=== PATIENT | female | born 1955 | race American Indian/Alaskan Native ===

== ENCOUNTER 2019-06-09 10:05 | Day surgery (SDC) | payer MEDICAID ==
[~2019-06-09 10:05] MED LIST: NACL 0.9% 1000 ML 1,000 ML IV SCH; XYLOCAINE MPF 2% ONE
--- NOTE | 2019-06-09 11:39 | Anesthesia Day of Surgery ---
Anesthesia Day of Surgery - Day of Surgery Patient Examined: Yes Patient H&P Reviewed: Yes Patient is NPO: Yes
--- NOTE | 2019-06-09 11:42 | Anesthesia Consultation ---
Anesthesia Consult and Med Hx Date of service: 06/09/19 - Pre-Operative Health Status ASA Pre-Surgery Classification: ASA2 Proposed Anesthetic Plan: MAC - Pulmonary Hx Asthma: Yes COPD: Yes - Cardiovascular System Hx Hypertension: Yes (States she can climb two flights of stairs) - Central Nervous System Hx Back Pain: Yes (Fusion) - Gastrointestinal Hx Gastroesophageal Reflux Disease: Yes (With spicy foods) - Endocrine Hx Renal Disease: Yes
[2019-06-09] MEDS ORDERED: DIPRIVAN 10 MG/ML IV ONE ×2 (11:57)
[2019-06-09] MEDS ORDERED: WATER FOR IRRIG STERILE ONE (12:13)
[2019-06-09] MEDS ORDERED: WATER FOR IRRIG STERILE IR ONE (12:13)
--- NOTE | 2019-06-09 12:48 | Operative Report ---
Operative Report Operative Report: Procedure: Colonoscopy with multiple hot biopsy polypectomies and multiple polyp ablations.. Attending physician: Morgan Rollins MD Vpk Teacher: Morgan Rollins MD Indication: Patient is a 63-year-old female who presents for colonoscopy because of positive cologuard test. A colonoscopy is now done to evaluate patient so that treatment may be directed based on the findings. Consent: Informed consent was obtained after advising the patient and family regarding nature of this procedure, its indications, potential benefits as well as possible complications including but not limited to bleeding perforation and adverse reaction to medication, infection as well as other cardiopulmonary com plications. An informed written and verbal consent was then obtained after due opportunity was provided for questions and answers. Monitoring: Patient was monitored continuously with pulse oximetry and electrocardiographic recordings as well as blood pressure recordings. Vital signs remained stable throughout this procedure with no untoward events. Preoperative assessment: Patient was assessed immediately prior to this procedure for capacity to tolerate monitored anesthesia care and moderate sedation as well as general anesthesia. Patient's ASA classification is 2, Mallampati class is 2, Hyomental distance is 3. Instrument: Olympus video colonoscope Medications: Propofol given intravenously in divided doses. For details please refer to anesthesia records. Description of procedure: Patient was placed in the left lateral decubitus position after achieving sedation, a digital rectal examination was performed following which the colonoscope was introduced into the anal verge and advanced to the cecum which was identified by the ileocecal valve, the appendiceal orifice, as well as by the cecal strap and direct transillumination. The colonoscope was subsequently withdrawn with careful inspection of all mucosal surfaces. Patient tolerated this procedure well and was subsequently taken to the recovery room. The following findings were noted. Findings: The patient had solid stool throughout most of the cecum and ascending colon and transverse colon. There was still recognizable food matter seen throughout the colon. The preparation was therefore very poor. In the sigmoid colon, patient had altogether 9 polyps. These were diminutive. 7 polyps removed by hot biopsy polypectomy measuring between 5-6 mm. 2 polyps were ablated patient approximately 3-4 mm. In the rectum, patient had an 8 mm flat polyp which was removed by hot biopsy polypectomy. On the retroflex view at the anal verge, patient had internal hemorrhoids. Impression: Poor colonoscopic preparation was substantial retained stool. Multiple diminutive sigmoid colon polyps status post hot biopsy polypectomy. Multiple diminutive sigmoid colon polyps status post ablation. Diminutive rectal polyp status post hot biopsy polypectomy. Internal hemorrhoids. Plan: Follow pathology report. High-fiber diet. Repeat colonoscopy in 3-6 months due to poor colonoscopic preparation and positive cologuard test.
--- NOTE | 2019-06-09 12:49 | Discharge Summary ---
Short Stay Discharge Plan Activity: advance as tolerated Weight Bearing Status: Weight Bear as Tolerated Diet: regular Additional Instructions: Post Sedation D/C Instructions When you return home you may resume your regular diet unless otherwise directed. - Go directly home from the hospital and rest quietly. You may resume normal activities tomorrow. -Do NOT drive, return to work, operate any machinery or make any important personal or business decisions today . -Do NOT drink any alcohol or take nerve or sleeping drugs. They add to the effects of the medicine still present in your body. No Aspirin or Aspirin products. Follow up with: ZELDA MOMIN MD [Primary Care Provider] - 7 Days
[2019-06-09 13:03] VITALS: BP 123/68
--- NOTE | 2019-06-09 13:39 | Post Anesthesia Evaluation ---
- Post Anesthesia Evaluation Patient Participated: Yes Airway Patent: Yes Stable Respiratory Function: Yes Nausea/Vomiting: No Temp > 96.8F: Yes Pain Manageable: Yes Adequeate Hydration: Yes Anesthesia Complications: No Block Receding Appropriately: Not Applicable Patient on Ventilator: No
== END 2019-06-09 10:06 | disposition home or self-care (01) ==
LOC: GIO 10:05
PROVIDERS: ATTEND Internal Medicine Gastroenterology
DX: K62.1 Rectal polyp (principal); K63.5 Polyp of colon; R19.5 Other fecal abnormalities; K64.8 Other hemorrhoids; I10 Essential (primary) hypertension; E78.00 Pure hypercholesterolemia, unspecified; J44.9 Chronic obstructive pulmonary disease, unspecified; K21.9 Gastro-esophageal reflux disease without esophagitis; Z87.442 Personal history of urinary calculi; Z87.891 Personal history of nicotine dependence
CPT/HCPCS: 45384; 45388; 88305; J2704; J7030